=== PATIENT | male | born 1950 | race Caucasian/White ===

== ENCOUNTER 2017-10-04 11:50 | Outpatient (CLI) | payer MEDICARE ==
--- NOTE | 2017-10-04 15:29 | Diagnostic Imaging Report ---
Indication: Cough Technique: XRAY Chest 2v Comparison: None Findings: There is hyperinflation with increased AP diameter of the chest and increased retrosternal clear space. These findings suggest emphysema. There is prominent interstitial markings bilaterally. There is some biapical scarring. There is no focal consolidation to suggest pneumonia. No pleural effusion or pneumothorax. There is osteopenia and degenerative change of the spine. No acute osseous abnormality seen. IMPRESSION: Findings compatible with emphysema. Consider high-resolution CT scan of the chest for assessment of severity as clinically indicated. No focal airspace consolidation to suggest pneumonia.
== END 2017-10-04 13:50 | disposition home or self-care (01) ==
LOC: RAD 11:50 → EDBD 11:50 → RAD 13:50
DX: R05 Cough (principal)
CPT/HCPCS: 71046